=== PATIENT | male | born 1980 | race Caucasian/White ===

== ENCOUNTER 2023-03-30 13:31 | Emergency (ER) | payer OTHER, SELFPAY ==
[2023-03-30 13:34] VITALS: BP 180/110
--- NOTE | 2023-03-30 14:56 | ED.GENMED ---
History of Present Illness
General
Chief Complaint: Rectal Bleeding
Source: patient
Exam Limitations: none
Time Seen by Provider: 03/30/23 14:10
Nursing documentation reviewed up to this point in time: agreed with
Travel History
Have you had any contact with someone who has COVID-19?: No
Do you have any symptoms of coronavirus? Fever > 100 degrees, chills, cough, shortness of breath, sore throat, loss of taste or smell, muscle aches, or headache?: No
History of Present Illness
History of Present Illness:
pt is a 43 y/o M with no sig pmh
here with rectal bleeding that started after BM today around 11 am.
p[t had a BM at that time
he says he wasn't straining
then when wiping noticed red blood on toilet paper
since then he has had to go to the bathroom and wipe himself and sees a ltitle more bleeding every time
it is not going onto his underwear
he has not had any belly pain, fever, vomiting, h/o blood thinners, anemia,hemorrhoids
has never had colonoscopy
denies fhx of colon cancer.
Past History
Past History
ED Past Medical History: None
ED Past Surgical History: None
Social History
Tobacco: Non-smoker
Alcohol: None
Drug: None
Review of Systems
Review of Systems
Allergies reviewed?: Yes
All Other Systems: Not applicable
Phy Exam
Physical Exam
Physical Exam:
GENERAL: Alert , in no apparent distress
CARDIAC: Regular rate and rhythm .
LUNGS: Clear breath sounds bilaterally, no acute respiratory distress, no wheezes/rales/rhonchi
ABDOMEN: Soft, without focal tenderness, no r/g, no cvat, normal bowel sounds
rectal: external hemorrhoid small 0.5 x0.5 cm with dark red center and a small opening from which the bleeding is occasionaly oozing from
NEUROLOGICAL: Alert and oriented, no focal neuro deficits
SKIN: Warm and dry, skin intact.
PSYCH: Normal and appropriate interaction.
Course
Orders/Labs/Results
Orders:
Orders
03/30/23 14:57
Tranexamic Acid 250 mg TOPICAL NOW STA
Vital Signs
Initial and Last Documented VS:
Initial Vital Signs
Temp Pulse Resp BP Pulse Ox
97.8 F 99 16 180/110 98
03/30/23 13:34 03/30/23 13:34 03/30/23 13:34 03/30/23 13:34 03/30/23 13:34
Last Documented Vital Signs
Temp Pulse Resp BP Pulse Ox
97.8 F 99 16 124/68 96
03/30/23 13:34 03/30/23 13:34 03/30/23 13:34 03/30/23 16:00 03/30/23 15:51
MDM/Problems Addressed
Differential Diagnosis Includes:
Hemorrhoid, internal and external
MDM/Problems Addressed:
43-year-old male with an external hemorrhoid that is bleeding slightly from a small opening, the hemorrhoid itself measures probably about 1 cm by half a centimeter and is external, it was not significantly tender. Occasionally will lose a little
bit. I soaked a cottonball with TXA and applied that to the area for about 20 minutes and reassess and the patient stopped bleeding. Recommend sitz bath's Preparation H with phenylephrine, Metamucil and follow-up with colorectal or GI
I do not feel that labs were relevant given the small amount of bleeding today and the source identified as a small hemorrhoid
*Critical Care Note
Total Time (30-74mins, 75-104mins- exclusive of procedures): Not Applicable
ED Attending Note
-
Portions of this chart may have been created with voice recognition software.� Occasional wrong word or��sound alike� substitutions may have occurred due to the inherent limitations of voice recognition software.
Discharge Plan
Departure
Patient Disposition: Home (Routine Discharge)
Patient with high blood pressure during this ER visit?: No
Condition: Fair
Covid-19: Not Applicable
Discharge Problem:
Hemorrhoid
Instructions: Hemorrhoids (DC)
Prescriptions:
No Action
No Current Medications
0
Referrals:
Jose Mitchell MD [Active] - Follow up in 1 week
Activity Restrictions/Additional Instructions:
YOUR BLEEDING IS COMING FROM AN EXTERNAL HEMORRHOID
GO TO [facility] AND GET THE OVER THE COUNTER PREPARATION H CREAM WITH PHENYLEPHRINE. (YOU DO NOT NEED THE SUPPOSITORY BUT JUST THE CREAM)
SOMETIMES IT HAS HDYROCORITSONE OR LIDOCAINE OR JELLY ETC. THOSE ARE ALL FINE.APPLY TWICE A DAY
IN THE [place] FOR 5-10 MINTUES SEVERAL TIMES A DAY, SOAK IN WARM WATER OR A SITZ BATHS
USE OVER THE COUNTER METAMUCIL DAILY TOKEEP STOOL SOFT
WIPE GENTLY
YOU CAN ALSO USE TOPCIAL WITCHHAZEL PADS
FOLLOW UP WITH COLORECTAL OR GI for more MANAGEMENT
YOU MAY NEED ADDITIONAL TESTING OR COLONOSCOPY
RETURN FOR ANY CONCERNS.
Interventions
Interventions:
*Risk Screen - Suicide Last Done: 03/30/23 15:10
*General Assessment Last Done: 03/30/23 15:15
*Neglect/Abuse Screening Last Done: 03/30/23 15:10
ED- Fall Risk Assessment Last Done: 03/30/23 15:15
*ED COVID-19 Vaccine History Last Done: 03/30/23 13:34
*Nursing Disposition Last Done: 03/30/23 16:12
KR-Kszyfp-Kxhluywcdf Assessment Last Done: 03/30/23 15:15
ED- Cardiac Assessment Last Done: 03/30/23 15:15
ED- Pulmonary Assessment Last Done: 03/30/23 15:15
Discharge Date and Time
Discharge Date/Time: 03/30/23 16:13
[2023-03-30 15:08] VITALS: BP 120/79
[2023-03-30 15:09] VITALS: BMI 19.7
[2023-03-30 16:00] VITALS: BP 124/68
[2023-03-30] MEDS: TRANEXAMIC ACID 250 MG TOPICAL (16:03)
== END 2023-03-30 16:13 | disposition home or self-care (01) ==
LOC: EMR 13:31
PROVIDERS: EMERGENCY PHYSICIAN Emergency Medicine; FAMILY PHYSICIAN Family Medicine
DX: K64.4 Residual hemorrhoidal skin tags (principal)
CPT/HCPCS: 99282

== ENCOUNTER 2024-05-15 06:17 | Day surgery (SDC) | payer OTHER, SELFPAY | END 2024-05-15 09:39 | disposition home or self-care (01) | LOC: GI 06:17 | PROVIDERS: ATTENDING PHYSICIAN Surgery | DX: K62.5 Hemorrhage of anus and rectum (principal); K64.9 Unspecified hemorrhoids; K63.5 Polyp of colon; K63.9 Disease of intestine, unspecified | CPT/HCPCS: 45380; 88305; 88342 ==